=== PATIENT | male | born 2000 | race Hispanic/Latino ===

== ENCOUNTER 2024-07-21 23:23 | Emergency (ER) | payer OTHER, SELFPAY | END 2024-07-22 01:45 | disposition home or self-care (01) | LOC: CSHERS 23:23 | DX: M94.0 Chondrocostal junction syndrome [Tietze] (principal); R09.1 Pleurisy | CPT/HCPCS: 71046 ==

== ENCOUNTER 2024-07-26 21:43 | Emergency (ER) | payer SELFPAY | END 2024-07-26 22:56 | disposition home or self-care (01) | LOC: CSHERS 21:43 | DX: J20.9 Acute bronchitis, unspecified (principal); R07.81 Pleurodynia | CPT/HCPCS: 71046 ==